=== PATIENT | male | born 1985 | race Caucasian/White ===

== ENCOUNTER 2017-08-20 08:55 | Inpatient (IN) | payer OTHER ==
[2017-08-20 09:22] VITALS: BMI 19.5
--- NOTE | 2017-08-20 10:12 | HP ---
COWS - Scale Resting Pulse: 1= [place] 81-100 Sweatin= Chills/Flushing Restless Observation: 3= Extraneous Movement Pupil Size: 1= Pupils >than Normal Bone or Joint Aches: 2= Severe Diffuse Aches Runny Nose/ Eye Tearin= Runny Nose/Eyes GI Upset > 30mins: 1= Stomach Cramp Tremor Observation: 1= Tremor [place], Not Seen Yawning Observation: 1= 1-2x During Session Anxiety or Irritability: 2=Irritable/Anxious Goose Flesh Skin: 3=Piloerection COWS Score: 18 Admission ROS S - HPI Chief Complaint: WITHDRAWAL SYMPTOMS Allergies/Adverse Reactions: Allergies Allergy/AdvReac Type Severity Reaction Status Date / Time No Known Allergies Allergy Verified 08/20/17 09:18 History of Present Illness: 32 y.o. man with an extensive history of opioid dependence is here seeking detox. He reports he completed detox 4 months ago in [place]. Does not have a significant period of being clean. Exam Limitations: No Limitations - Ebola screening Have you traveled outside of the country in the last 21 days: No Have you had contact with anyone from an Ebola affected area: No Have you been sick,other than usual withdrawal symptoms: No Do you have a fever: No - Review of Systems Constitutional: Chills, Loss of Appetite, Night Sweats, Changes in sleep EENT: reports: Tearing, Nose Congestion Respiratory: reports: No Symptoms reported Cardiac: reports: No Symptoms Reported GI: reports: Abdominal cramping : reports: No Symptoms Reported Musculoskeletal: reports: Back Pain Integumentary: reports: No Symptoms Reported Neuro: reports: No Symptoms reported Endocrine: reports: No Symptoms Reported Hematology: reports: No Symptoms Reported Psychiatric: reports: Mood/Affect Appropiate, Orientated x3, Depressed Other Systems: Reviewed and Negative Patient History - Patient Medical History Hx Anemia: No Hx Asthma: No Hx Chronic Obstructive Pulmonary Disease (COPD): No Hx Cancer: No Hx Cardiac Disorders: No Hx Congestive Heart Failure: No Hx Hypertension: No Hx Hypercholesterolemia: No Hx Pacemaker: No HX Cerebrovascular Accident: No Hx Seizures: No Hx Dementia: No Hx Diabetes: No Hx Gastrointestinal Disorders: No Hx Liver Disease: No Hx Genitourinary Disorders: No Hx Sexually Transmitted Disorders: No Hx Renal Disease (ESRD): No Hx Thyroid Disease: No Hx Human Immunodeficiency Virus (HIV): No Hx Hepatitis C: No Hx Depression: Yes Hx Suicide Attempt: No Hx Bipolar Disorder: No Hx Schizophrenia: No - Patient Surgical History Past Surgical History: No Hx Neurologic Surgery: No Hx Cataract Extraction: No Hx Cardiac Surgery: No Hx Lung Surgery: No Hx Breast Surgery: No Hx Breast Biopsy: No Hx Abdominal Surgery: No Hx Appendectomy: No Hx Cholecystectomy: No Hx Genitourinary Surgery: No Hx Section: No Hx Orthopedic Surgery: No Anesthesia Reaction: No - PPD History Previous Implant?: Yes Documented Results: Negative w/o proof PPD to be Administered?: Yes - Reproductive History Patient is a Female of Child Bearing Age (11 -55 yrs old): No - Smoking Cessation Smoking history: Current every day smoker Have you smoked in the past 12 months: Yes Aproximately how many cigarettes per day: 10 Hx Chewing Tobacco Use: No Initiated information on smoking cessation: Yes 'Breaking Loose' booklet given: 08/20/17 - Substance & Tx. History Hx Alcohol Use: No Hx Substance Use: Yes Substance Use Type: Opiates Hx Substance Use Treatment: Yes (DETOX AND REHAB: 4 MONTHS AGO IN [place] ) - Substances Abused Heroin Route: Injection Frequency: Daily Amount used: 6 bags Age of first use: 25 Date of Last Use: 08/19/17 Family Disease History - Family Disease History Family Disease History: Diabetes: Father (), Heart Disease: Father Admission Physical Exam [facility] - Vital Signs Vital Signs: Vital Signs - 24 hr 08/20/17 09:20 Temperature 97.6 F Pulse Rate 83 Respiratory 18 Rate Blood Pressure 122/75 - Physical General Appearance: Yes: No Apparent Distress, Thin, Irritable, Anxious HEENTM: Yes: Hearing grossly Normal, Normocephalic, Normal Voice Respiratory: Yes: Chest Non-Tender, Lungs Clear, Normal Breath Sounds, No Respiratory Distress, No Accessory Muscle Use Neck: Yes: No masses,lesions,Nodules, Trachea in good position Breast: Yes: Breast Exam Deferred Cardiology: Yes: Regular Rhythm, Regular Rate Abdominal: Yes: Normal Bowel Sounds, Non Tender, Flat, Soft Genitourinary: Yes: Other (NO COMPLAINTS REPORTED) Back: Yes: Normal Inspection Musculoskeletal: Yes: full range of Motion, Gait Steady, Pelvis Stable Extremities: Yes: Normal Capillary Refill, Normal Inspection, Normal Range of Motion, Non-Tender Neurological: Yes: insight leader II-XII NML intact, Fully Oriented, Normal Mood/Affect, Normal Response Integumentary: Yes: Other (B/L ABSCESS OF AXILLA) Lymphatic: Yes: Within Normal Limits - Diagnostic (1) Opioid dependence with withdrawal Current Visit: Yes Status: Chronic (2) Nicotine dependence Current Visit: Yes Status: Chronic (3) Abscesses of both axillae Current Visit: Yes Status: Acute Cleared for Admission [facility] - Detox or Rehab [facility] Level of Care: Medically Managed Detox Regimen/Protocol: Methadone [facility] Breath Alcohol Content Breath Alcohol Content: 0 Urine Drug Screen - Results Drug Screen Negative: No Urine Drug Screen Results: THC-Marijuana, LAYO-Cocaine, OPI-Opiates, PCP- Phencyclidine
[2017-08-20] MEDS ORDERED: MAGNESIUM CITRATE 300 ML BOTTLE PO PRN (10:23)
[2017-08-20] MEDS ORDERED: MAGNESIUM HYDROX 2400MG/30ML ORAL SUSPENSION 30 ML CUP PO PRN (10:23)
[2017-08-20] MEDS ORDERED: MENTHOL/PHENOL 1 EACH UD MM PRN (10:23)
[2017-08-20] MEDS ORDERED: LOPERAMIDE HCL 2 MG CAPSULE PO PRN (10:23)
[2017-08-20] MEDS ORDERED: IBUPROFEN 400 MG TABLET (FP) PO PRN (10:23)
[2017-08-20] MEDS ORDERED: P-EPHED 60MG/TRIPROLIDI 2.5MG TABLET PO PRN (10:23)
[2017-08-20] MEDS ORDERED: guaiFENesin/D-METHORPHAN HB 10 ML UNIT-DOSE CUPS PO PRN (10:23)
[2017-08-20] MEDS: diazePAM 5 MG TABLET PO PRN ×3 (12:52→22:19)
[2017-08-20] MEDS ORDERED: METHADONE HCL 10 MG TABLET (FOR DETOX USE ONLY) PO ONE ×2 (13:00→23:00)
[2017-08-20] MEDS: IBUPROFEN 600 MG TABLET (FP) PO PRN ×2 (13:04→20:49)
[2017-08-20] MEDS: SULFAMETHOXAZOLE/TRIMETHOPRIM 800MG/160MG D.S. TABLET PO SCH ×2 (13:04→22:19)
[2017-08-20] MEDS: NICOTINE 21 MG/24 HOURS TOPICAL PATCH TD SCH (14:53)
[2017-08-20 17:40] LABS: URINE APPEARANCE CLEAR; URINE BILIRUBIN NEGATIVE (NEGATIVE); URINE BLOOD NEGATIVE (NEGATIVE); URINE COLOR YELLOW; URINE GLUCOSE (UA) NEGATIVE (NEGATIVE); URINE KETONE NEGATIVE (NEGATIVE); URINE NITRITE NEGATIVE (NEGATIVE); URINE PROTEIN NEGATIVE (NEGATIVE); URINE UROBILINOGEN NEGATIVE mg/dL (0.2-1.0)
[2017-08-20 21:10] LABS: URINE LEUK ESTERASE Negative (NEGATIVE)
[2017-08-20] MEDS: THIAMINE HCL 100 MG TABLET (FP) PO SCH (22:19)
[2017-08-20] MEDS: ACETAMINOPHEN 325 MG TABLET (FP) PO PRN (22:20)
[2017-08-20] MEDS: diphenhydrAMINE HCL 50 MG CAPSULE PO PRN (22:23)
[2017-08-21] MEDS: diazePAM 5 MG TABLET PO PRN ×5 (06:09→22:51)
[2017-08-21] MEDS: IBUPROFEN 600 MG TABLET (FP) PO PRN ×3 (06:09→22:50)
--- NOTE | 2017-08-21 09:36 | CONSULT ---
[facility] Psychiatric Consult - Data Date of interview: 08/21/17 Admission source: [facility] Identifying data: This is 32 years old male with no psychiatric hospitalization history intoxciataed with: Heroin and Nicotine Substance Abuse History: - Smoking Cessation. Smoking history: Current every day smoker. Have you smoked in the past 12 months: Yes. Aproximately how many cigarettes per day: 10. Hx Chewing Tobacco Use: No. Initiated information on smoking cessation: Yes. 'Breaking Loose' booklet given: 08/20/17. - Substance & Tx. History. Hx Alcohol Use: No. Hx Substance Use: Yes. Substance Use Type : Opiates. Hx Substance Use Treatment: Yes (DETOX AND REHAB: 4 MONTHS AGO IN [place] ). - Substances Abused. Heroin. Route: Injection. Frequency: Daily. Amount used: 6 bags. Age of first use: 25. Date of Last Use: 08/19/17 Medical History: Axillar Carbuncl/abscesses in both axillars Psychiatric History: Denies past psychiatric history Physical/Sexual Abuse/Trauma History: Denies Additional Comment: Observation. Detox Unit Care Protocol Mental Status Exam - Mental Status Exam Alert and Oriented to: Person Cognitive Function: Fair Patient Appearance: Unkempt Mood: Apprehensive Affect: Mood Congruent Patient Behavior: Cooperative Speech Pattern: Appropriate Voice Loudness: Normal Thought Process: Goal Oriented Thought Disorder: Being Controlled Hallucinations: Denies Suicidal Ideation: Denies Homicidal Ideation: Denies Insight/Judgement: Fair Sleep: Difficulty falling asleep Appetite: Weight loss Muscle strength/Tone: Normal Gait/Station: Normal Additional Comments: Observation. Detox Unit Care Protocol Psychiatric Findings - Problem List ([place] 1, 2,3) (1) Nicotine dependence Current Visit: Yes Status: Chronic (2) Opioid dependence with withdrawal Current Visit: Yes Status: Suspected - Initial Treatment Plan Initial Treatment Plan: Observation. Detox Unit Care Protocol
[2017-08-21 09:50] LABS: MCH 29.4 pg (25.7-33.7); MCHC 32.9 g/dl (32.0-35.9); MEAN CELL VOLUME 89.3 fl (80-96); PLATELET COUNT 271 K/MM3 (134-434); RDW 12.4 % (11.9-15.9); WHITE BLOOD COUNT 8.1 K/mm3 (4.0-10.0)
[2017-08-21] MEDS ORDERED: METHADONE HCL 10 MG TABLET (FOR DETOX USE ONLY) PO ONE (10:00)
[2017-08-21] MEDS ORDERED: NICOTINE 21 MG/24 HOURS TOPICAL PATCH TD SCH (10:00)
[2017-08-21] MEDS: SULFAMETHOXAZOLE/TRIMETHOPRIM 800MG/160MG D.S. TABLET PO SCH (10:04)
[2017-08-21] MEDS: PRENATAL VITAMINS W/ FOLIC ACID TABLET (FP) PO SCH (10:04)
[2017-08-21 10:08] LABS: ALBUMIN 3.1 g/dl (3.4-5.0); ALK PHOS 79 U/L (45-117); ANION GAP 5 (8-16); BILIRUBIN,TOTAL 0.4 mg/dL (0.2-1.0); CALCIUM 8.3 mg/dL (8.5-10.1); CO2 28 mmol/L (21-32); GLUCOSE,RANDOM 88 mg/dL (74-106); SGOT/AST 10 U/L (15-37); SGPT/ALT 20 U/L (12-78); TOT PROT 5.9 g/dl (6.4-8.2)
[2017-08-21] MEDS: NICOTINE 21 MG/24 HOURS TOPICAL PATCH TD SCH (10:08)
--- NOTE | 2017-08-21 10:17 | EKG ---
Test Reason : Blood Pressure : / mmHG Vent. Rate : 077 BPM Atrial Rate : 077 BPM P-R Int : 166 ms QRS Dur : 080 ms QT Int : 378 ms P-R-T Axes : 075 070 047 degrees QTc Int : 427 ms NORMAL SINUS RHYTHM NORMAL ECG NO PREVIOUS ECGS AVAILABLE Confirmed by MARGI BETTS MD ([id number]) on 08/21/2017 10:17:48 AM Referred By: Confirmed By:MARGI BETTS MD
[2017-08-21 11:17] LABS: HIV 1 & 2 AB NEGATIVE; HIV 1 AGp24 NEGATIVE
[2017-08-21] MEDS: CEPHALEXIN MONOHYDRATE 500 MG CAPSULE (UD) PO SCH ×3 (11:18→23:28)
[2017-08-21] MEDS: BACITRACIN 0.9 GM PACKET TP SCH ×2 (11:26→22:50)
--- NOTE | 2017-08-21 11:47 | PN ---
S COWS - Scale Resting Pulse: 1= [place] 81-100 Sweatin=Flushed/Facial Moisture Restless Observation: 1= Difficult to Sit Still Pupil Size: 0= Normal to Room Light Bone or Joint Aches: 2= Severe Diffuse Aches Runny Nose/ Eye Tearin= Runny Nose/Eyes GI Upset > 30mins: 2= Nausea/Diarrhea Tremor Observation of Outstretched Hands: 2= Slight Tremor Visible Yawning Observation: 1= 1-2x During Session Anxiety or Irritability: 2=Irritable/Anxious Goose Flesh Skin: 3=Piloerection COWS Score: 18 S Progress Note (SOAP) Subjective: agitation anxiety sweats nausea interrupted sleep restless pain to abscess underarm pit Objective: 08/21/17 11:45 Vital Signs Temperature 96.6 F L 08/21/17 10:15 Pulse Rate 87 08/21/17 10:15 Respiratory Rate 18 08/21/17 10:15 Blood Pressure 115/71 08/21/17 10:15 O2 Sat by Pulse Oximetry (%) Laboratory Tests 08/20/17 08/21/17 08/21/17 11:10 07:00 07:00 WBC 8.1 RBC 4.01 Hgb 11.8 Hct 35.8 MCV 89.3 MCH 29.4 MCHC 32.9 RDW 12.4 Plt Count 271 MPV 8.0 Sodium Potassium Chloride Carbon Dioxide Anion Gap BUN Creatinine Creat Clearance w eGFR Random Glucose Calcium Total Bilirubin AST ALT Alkaline Phosphatase Total Protein Albumin Urine Color Yellow Urine Appearance Clear Urine pH 6.0 Ur Specific [place] 1.015 Urine Protein Negative Urine Glucose (UA) Negative Urine Ketones Negative Urine Blood Negative Urine Nitrite Negative Urine Bilirubin Negative Urine Urobilinogen Negative Ur Leukocyte Esterase Negative RPR Titer HIV 1&2 Antibody Screen Negative HIV P24 Antigen Negative 08/21/17 08/21/17 07:00 07:00 WBC RBC Hgb Hct MCV MCH MCHC RDW Plt Count MPV Sodium 142 Potassium 4.6 Chloride 109 H Carbon Dioxide 28 Anion Gap 5 L BUN 10 Creatinine 1.0 Creat Clearance w eGFR > 60 Random Glucose 88 Calcium 8.3 L Total Bilirubin 0.4 AST 10 L ALT 20 Alkaline Phosphatase 79 Total Protein 5.9 L Albumin 3.1 L Urine Color Urine Appearance Urine pH Ur Specific [place] Urine Protein Urine Glucose (UA) Urine Ketones Urine Blood Urine Nitrite Urine Bilirubin Urine Urobilinogen Ur Leukocyte Esterase RPR Titer Nonreactive HIV 1&2 Antibody Screen HIV P24 Antigen aaox3 ambulating no acute distress abscess with purulent drainage noted to both underarm pit. Assessment: 08/21/17 11:46 withdrawal sx Plan: continue detox increase fluids keflex ordered bacitracin ointment ordered warm compresses prn to axilla area
[2017-08-21] MEDS: ACETAMINOPHEN 325 MG TABLET (FP) PO PRN (17:04)
[2017-08-21] MEDS: THIAMINE HCL 100 MG TABLET (FP) PO SCH (23:28)
[2017-08-22] MEDS: diazePAM 5 MG TABLET PO PRN ×4 (05:44→23:01)
[2017-08-22] MEDS: CEPHALEXIN MONOHYDRATE 500 MG CAPSULE (UD) PO SCH ×4 (05:44→23:02)
[2017-08-22] MEDS: ACETAMINOPHEN 325 MG TABLET (FP) PO PRN (05:44)
[2017-08-22] MEDS ORDERED: METHADONE HCL 5 MG TABLET (FOR DETOX USE ONLY) PO ONE (10:00)
--- NOTE | 2017-08-22 10:15 | PN ---
[facility] COWS - Scale Resting Pulse: 1= [place] 81-100 Sweatin=Flushed/Facial Moisture Restless Observation: 1= Difficult to Sit Still Pupil Size: 0= Normal to Room Light Bone or Joint Aches: 2= Severe Diffuse Aches Runny Nose/ Eye Tearin= Runny Nose/Eyes GI Upset > 30mins: 2= Nausea/Diarrhea Tremor Observation of Outstretched Hands: 2= Slight Tremor Visible Yawning Observation: 0= None Anxiety or Irritability: 2=Irritable/Anxious Goose Flesh Skin: 0=Smooth Skin COWS Score: 14 [facility] Progress Note (SOAP) Subjective: nausea sweats restless agitation the abscess is less painful Objective: 08/22/17 10:14 Vital Signs Temperature 96.6 F L 08/22/17 06:36 Pulse Rate 75 08/22/17 06:36 Respiratory Rate 18 08/22/17 06:36 Blood Pressure 123/66 08/22/17 06:36 O2 Sat by Pulse Oximetry (%) Laboratory Tests 08/20/17 08/21/17 08/21/17 11:10 07:00 07:00 WBC 8.1 RBC 4.01 Hgb 11.8 Hct 35.8 MCV 89.3 MCH 29.4 MCHC 32.9 RDW 12.4 Plt Count 271 MPV 8.0 Sodium Potassium Chloride Carbon Dioxide Anion Gap BUN Creatinine Creat Clearance w eGFR Random Glucose Calcium Total Bilirubin AST ALT Alkaline Phosphatase Total Protein Albumin Urine Color Yellow Urine Appearance Clear Urine pH 6.0 Ur Specific [place] 1.015 Urine Protein Negative Urine Glucose (UA) Negative Urine Ketones Negative Urine Blood Negative Urine Nitrite Negative Urine Bilirubin Negative Urine Urobilinogen Negative Ur Leukocyte Esterase Negative RPR Titer Hepatitis C Antibody HIV 1&2 Antibody Screen Negative HIV P24 Antigen Negative 08/21/17 08/21/17 08/21/17 07:00 07:00 07:00 WBC RBC Hgb Hct MCV MCH MCHC RDW Plt Count MPV Sodium 142 Potassium 4.6 Chloride 109 H Carbon Dioxide 28 Anion Gap 5 L BUN 10 Creatinine 1.0 Creat Clearance w eGFR > 60 Random Glucose 88 Calcium 8.3 L Total Bilirubin 0.4 AST 10 L ALT 20 Alkaline Phosphatase 79 Total Protein 5.9 L Albumin 3.1 L Urine Color Urine Appearance Urine pH Ur Specific [place] Urine Protein Urine Glucose (UA) Urine Ketones Urine Blood Urine Nitrite Urine Bilirubin Urine Urobilinogen Ur Leukocyte Esterase RPR Titer Nonreactive Hepatitis C Antibody <0.1 HIV 1&2 Antibody Screen HIV P24 Antigen aaox3 ambulating no acute distress Assessment: 08/22/17 10:15 withdrawal sx Plan: continue detox increase fluids continue ABX continue warm compress prn
[2017-08-22] MEDS: PRENATAL VITAMINS W/ FOLIC ACID TABLET (FP) PO SCH (10:40)
[2017-08-22] MEDS: NICOTINE 21 MG/24 HOURS TOPICAL PATCH TD SCH (10:41)
[2017-08-22] MEDS: BACITRACIN 0.9 GM PACKET TP SCH ×2 (10:43→23:01)
[2017-08-22] MEDS: MAG HYDROX/AL HYDROX/SIMETH 30 ML UNIT-DOSE CUP PO PRN (17:22)
[2017-08-22] MEDS: THIAMINE HCL 100 MG TABLET (FP) PO SCH (23:01)
[2017-08-22] MEDS: IBUPROFEN 600 MG TABLET (FP) PO PRN (23:01)
[2017-08-22] MEDS: diphenhydrAMINE HCL 50 MG CAPSULE PO PRN (23:02)
[2017-08-23] MEDS: MAG HYDROX/AL HYDROX/SIMETH 30 ML UNIT-DOSE CUP PO PRN (02:38)
[2017-08-23] MEDS: CEPHALEXIN MONOHYDRATE 500 MG CAPSULE (UD) PO SCH ×4 (05:49→23:20)
[2017-08-23] MEDS: diazePAM 5 MG TABLET PO PRN (05:50)
[2017-08-23] MEDS ORDERED: METHADONE HCL 5 MG TABLET (FOR DETOX USE ONLY) PO ONE (10:00)
[2017-08-23] MEDS: NICOTINE 21 MG/24 HOURS TOPICAL PATCH TD SCH (11:10)
[2017-08-23] MEDS: PRENATAL VITAMINS W/ FOLIC ACID TABLET (FP) PO SCH (11:11)
[2017-08-23] MEDS: BACITRACIN 0.9 GM PACKET TP SCH ×2 (11:11→22:12)
--- NOTE | 2017-08-23 12:13 | PN ---
[facility] Progress Note (SOAP) Subjective: interrupted sleep agitation sweats irritable Objective: 08/23/17 12:12 Vital Signs Temperature 97.1 F L 08/23/17 10:00 Pulse Rate 80 08/23/17 10:00 Respiratory Rate 16 08/23/17 10:00 Blood Pressure 114/70 08/23/17 10:00 O2 Sat by Pulse Oximetry (%) aaox3 ambulating no acute distress Assessment: 08/23/17 12:13 withdrawal sx Plan: continue detox increase fluids
[2017-08-23] MEDS: hydrOXYzine PAMOATE 50 MG CAPSULE (FP) PO PRN ×2 (14:24→20:02)
[2017-08-23] MEDS: IBUPROFEN 600 MG TABLET (FP) PO PRN (15:48)
[2017-08-23] MEDS: ACETAMINOPHEN 325 MG TABLET (FP) PO PRN (20:02)
[2017-08-23] MEDS: ZOLPIDEM TARTRATE 10 MG TABLET (PARK CARE ONLY) PO PRN (22:13)
[2017-08-23] MEDS: IBUPROFEN 400 MG TABLET (FP) PO PRN (22:13)
[2017-08-23] MEDS: cloNIDine HCL 0.1 MG TABLET PO SCH (22:13)
[2017-08-23] MEDS: THIAMINE HCL 100 MG TABLET (FP) PO SCH (22:13)
[2017-08-23] MEDS: CYCLOBENZAPRINE HCL 10 MG TABLET (FP) PO PRN (22:13)
[2017-08-24] MEDS: CEPHALEXIN MONOHYDRATE 500 MG CAPSULE (UD) PO SCH ×4 (08:36→23:13)
[2017-08-24] MEDS ORDERED: METHADONE HCL 10 MG TABLET (FOR DETOX USE ONLY) PO ONE (10:00)
[2017-08-24] MEDS: BACITRACIN 0.9 GM PACKET TP SCH ×2 (11:01→23:11)
[2017-08-24] MEDS: PRENATAL VITAMINS W/ FOLIC ACID TABLET (FP) PO SCH (11:02)
[2017-08-24] MEDS: cloNIDine HCL 0.1 MG TABLET PO SCH ×2 (11:02→23:11)
[2017-08-24] MEDS: NICOTINE 21 MG/24 HOURS TOPICAL PATCH TD SCH (11:03)
[2017-08-24] MEDS: IBUPROFEN 400 MG TABLET (FP) PO PRN (11:04)
--- NOTE | 2017-08-24 12:09 | PN ---
S Progress Note (SOAP) Subjective: alert,irritable,anxious,interrupted sleep Objective: 08/24/17 12:11 Vital Signs Temperature 97.2 F L 08/24/17 10:04 Pulse Rate 79 08/24/17 10:04 Respiratory Rate 18 08/24/17 10:04 Blood Pressure 113/64 08/24/17 10:04 O2 Sat by Pulse Oximetry (%) Assessment: 08/24/17 12:12 withdrawal symptom Plan: continue detox,discharge in am
[2017-08-24] MEDS: hydrOXYzine PAMOATE 50 MG CAPSULE (FP) PO PRN ×2 (15:51→23:13)
[2017-08-24] MEDS: CYCLOBENZAPRINE HCL 10 MG TABLET (FP) PO PRN (15:51)
[2017-08-24] MEDS: ZOLPIDEM TARTRATE 10 MG TABLET (PARK CARE ONLY) PO PRN (23:11)
[2017-08-24] MEDS: THIAMINE HCL 100 MG TABLET (FP) PO SCH (23:11)
[2017-08-24] MEDS: NICOTINE POLACRILEX 2 MG GUM BC PRN (23:21)
[2017-08-25] MEDS ORDERED: METHADONE HCL 5 MG TABLET (FOR DETOX USE ONLY) PO ONE (06:00)
[2017-08-25] MEDS: CEPHALEXIN MONOHYDRATE 500 MG CAPSULE (UD) PO SCH ×2 (06:06→10:59)
[2017-08-25] MEDS: IBUPROFEN 400 MG TABLET (FP) PO PRN (06:12)
[2017-08-25] MEDS: CYCLOBENZAPRINE HCL 10 MG TABLET (FP) PO PRN (06:12)
[2017-08-25] MEDS: hydrOXYzine PAMOATE 50 MG CAPSULE (FP) PO PRN ×2 (06:12→11:01)
[2017-08-25 06:34] VITALS: TEMP 97.7
--- NOTE | 2017-08-25 09:00 | DS ---
[facility] Detox Discharge Summary Admission Date: 08/20/17 Discharge Date: 08/25/17 - History Present History: Opioid Dependence Additional Comments: FOLLOW UP WITH AFTER CARE PROGRAM ARRANGEMENT Pertinent Past History: NICOTINE DEPENDENCE - Physical Exam Results Vital Signs: Vital Signs Temperature 97.7 F 08/25/17 06:00 Pulse Rate 67 08/25/17 06:00 Respiratory Rate 18 08/25/17 06:00 Blood Pressure 103/60 08/25/17 06:00 O2 Sat by Pulse Oximetry (%) Pertinent Admission Physical Exam Findings: WITHDRAWAL SYMPTOM - Treatment Hospital Course: Detox Protocol Followed, Detoxed Safely, Responded well, Discharged Condition Good, Rehab Referral Accepted Patient has Accepted a Rehab Referral to: [facility] - Medication Discharge Medications: Ambulatory Orders Ibuprofen [Motrin -] 600 mg PO TID 08/20/17 Sulfamethoxazole/Trimethoprim [Bactrim Ds -] 1 tab PO BID 08/20/17 - Diagnosis (1) Opioid dependence with withdrawal Current Visit: Yes Status: Chronic (2) Abscesses of both axillae Current Visit: Yes Status: Acute (3) Nicotine dependence Current Visit: Yes Status: Chronic - AMA Did Patient Leave Against Medical Advice: No
[2017-08-25 10:53] VITALS: BP 102/69; PULSE 103
[2017-08-25] MEDS: cloNIDine HCL 0.1 MG TABLET PO SCH (10:57)
[2017-08-25] MEDS: BACITRACIN 0.9 GM PACKET TP SCH (10:57)
[2017-08-25] MEDS: PRENATAL VITAMINS W/ FOLIC ACID TABLET (FP) PO SCH (10:57)
[2017-08-25] MEDS: NICOTINE 21 MG/24 HOURS TOPICAL PATCH TD SCH (10:58)
[2017-08-25] MEDS: NICOTINE POLACRILEX 2 MG GUM BC PRN (11:02)
== END 2017-08-25 12:22 | disposition home or self-care (01) | DRG 773 ==
LOC: YASAS 08:55 → Y6N 11:44
PROVIDERS: ADMIT Internal Medicine; ATTEND Internal Medicine
PROC: HZ2ZZZZ Detoxification Services for Substance Abuse Treatment (ICD-10-PCS; principal; 2017-08-20)
DX: F11.23 Opioid dependence with withdrawal (principal); F17.210 Nicotine dependence, cigarettes, uncomplicated; L02.412 Cutaneous abscess of left axilla; L02.411 Cutaneous abscess of right axilla
CPT/HCPCS: 36415; 80053; 81003; 85027; 86593; 86803; 87389; 93005; 93010